=== PATIENT | female | born 1995 | race Two or more races ===

== ENCOUNTER 2022-01-08 17:55 | Emergency (ER) | payer OTHER, SELFPAY ==
--- NOTE | 2022-01-08 18:34 | PC.NURSE ---
patient called to triage x 3 w/ no answer
== END 2022-01-08 20:26 | disposition left against medical advice (07) ==
PROVIDERS: Emergency Provider Emergency Medicine
DX: R11.10 Vomiting, unspecified (principal); R51.9 Headache, unspecified; R52 Pain, unspecified